=== PATIENT | male | born 1995 | race African-American/Black ===

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

== ENCOUNTER 2021-05-31 13:06 | Emergency (ER) | payer OTHER ==
[~2021-05-31] VITALS: Ht 165.1 cm; Wt 63.6 kg
[2021-05-31] MEDS ORDERED: HYDROCODONE/ACETAMINOPHEN 5-325 MG TABLET PO ONE (14:00)
[2021-05-31] MEDS ORDERED: KETOROLAC TROMETHAMINE 30 MG/ML VIAL IM ONE (14:00)
[2021-05-31 15:07] VITALS: BP 120/69
[2021-05-31] MEDS ORDERED: NAPR-1025 PO (15:24)
[2021-05-31] MEDS ORDERED: LIDOCAINE 5% TRANSDERMAL PATCH TD ONE (15:30)
== END 2021-05-31 15:48 | disposition home or self-care (01) ==
LOC: EMS 13:06
DX: S20.219A Contusion of unspecified front wall of thorax, initial encounter (principal); Z59.00 Homelessness unspecified; V19.9XXA Pedal cyclist (driver) (passenger) injured in unspecified traffic accident, initial encounter; Y93.55 Activity, bike riding; Y92.828 Other wilderness area as the place of occurrence of the external cause; Y99.8 Other external cause status
CPT/HCPCS: 71046; 93005; 96372; 99283; J1885; 99284

== ENCOUNTER 2021-06-05 03:37 | Emergency (ER) | payer OTHER ==
[~2021-06-05] VITALS: Ht 165.1 cm; Wt 63.6 kg
[~2021-06-05 03:37] MED LIST changes: +NAPR-1025 PO
[2021-06-05] MEDS ORDERED: ASPIRIN 325 MG TABLET PO ONE (04:00)
[2021-06-05] MEDS ORDERED: LORazepam 2 MG/ML VIAL IM ONE (04:00)
[2021-06-05 04:08] LABS: BASOPHILS % (AUTO) 1.1 % (0.0-2.0); EOSINOPHILS % (AUTO) 3.7 % (1.0-6.0); HEMATOCRIT 43.1 % (41-53); HEMOGLOBIN 14.9 g/dL (13.5-17.5); LYMPHOCYTES # (AUTO) 3.8 K/uL (1.0-4.8); LYMPHOCYTES % (AUTO) 32.6 % (22.0-44.0); MEAN CORPUSCULAR HEMOGLOBIN 29.2 pg (26.0-34.0); MEAN CORPUSCULAR HGB CONC 34.6 G/dL (31.0-37.0); MEAN CORPUSCULAR VOLUME 84 fL (80-100); MONOCYTES # (AUTO) 1.1 K/uL (0.1-1.0); MONOCYTES % (AUTO) 9.3 % (2.0-9.0); NEUTROPHILS # (AUTO) 6.3 K/uL (1.8-7.7); NEUTROPHILS % (AUTO) 53.3 % (40.0-70.0); PLATELET COUNT (AUTO) 318 K/uL (150-450); RED BLOOD CELL COUNT(AUTO) 5.12 MIL/uL (4.50-5.90); RED CELL DISTRIBUTION WIDTH 13.9 % (11.5-14.5)
[2021-06-05 04:17] LABS: ANION GAP 12 mmol/L (8-16); CALCIUM, TOTAL 8.9 mg/dL (8.8-10.5); CARBON DIOXIDE 27 mmol/L (22-29); CHLORIDE 101 mmol/L (98-107); CREATININE 1.07 mg/dL (0.60-1.30); GLOMERULAR FILTR. RATE CALC > 60 mL/min (>60); GLUCOSE,RANDOM 169 mg/dL (70-110); POTASSIUM 3.4 mmol/L (3.5-5.1); SODIUM SERUM 140 mmol/L (136-145); UREA NITROGEN, BLOOD 11 mg/dL (7-18)
[2021-06-05 04:23] LABS: ALANINE AMINOTRANSFERASE 44 U/L (12-78); ALBUMIN 3.9 g/dL (3.4-5.0); ALKALINE PHOSPHATASE 54 U/L (46-116); ASPARTATE AMINOTRANSFERASE 20 U/L (15-37); BILIRUBIN,TOTAL 0.8 mg/dL (0.1-1.0); TOTAL PROTEIN, SERUM 7.6 g/dL (6.4-8.2)
[2021-06-05 04:25] LABS: AMPHET/METH SCREEN,URINE POSITIVE (NEGATIVE); BARBITURATE SCREEN, URINE NEGATIVE (NEGATIVE); BENZODIAZEPINES SCREEN,URINE NEGATIVE (NEGATIVE); CANNABINOID SCREEN,URINE NEGATIVE (NEGATIVE); COCAINE SCREEN,URINE NEGATIVE (NEGATIVE); METHADONE SCREEN, URINE NEGATIVE (NEGATIVE); OPIATE SCREEN,URINE POSITIVE (NEGATIVE); PHENCYCLIDINE SCREEN,URINE NEGATIVE (NEGATIVE)
[2021-06-05] MEDS ORDERED: LORA-1000 PO (04:39)
[2021-06-05] MEDS ORDERED: LORazepam 1 MG TABLET PO ONE (04:45)
[2021-06-05 04:47] VITALS: BP 134/75
== END 2021-06-05 04:53 | disposition home or self-care (01) ==
LOC: EMS 03:40
DX: R07.89 Other chest pain (principal); F15.10 Other stimulant abuse, uncomplicated; R20.0 Anesthesia of skin; Z59.00 Homelessness unspecified
CPT/HCPCS: 36415; 71045; 80053; 80307; 84484; 85025; 93005; 96372; 99285; J2060

== ENCOUNTER 2021-07-20 18:30 | Emergency (ER) | payer OTHER ==
[~2021-07-20] VITALS: Ht 167.6 cm; Wt 65.9 kg
[~2021-07-20 18:30] MED LIST changes: +LORA-1000 PO
[2021-07-20 18:41] VITALS: BP 151/75
== END 2021-07-20 22:00 | disposition left against medical advice (07) ==
LOC: EMS 18:35
DX: Z53.21 Procedure and treatment not carried out due to patient leaving prior to being seen by health care provider (principal)

== ENCOUNTER 2021-09-08 16:55 | Emergency (ER) | payer OTHER ==
[~2021-09-08] VITALS: Ht 177.8 cm; Wt 65.9 kg
[2021-09-08 18:42] VITALS: BP 145/88
== END 2021-09-08 19:48 | disposition left against medical advice (07) ==
LOC: EMS 16:57
DX: Z53.21 Procedure and treatment not carried out due to patient leaving prior to being seen by health care provider (principal)
CPT/HCPCS: 93005

== ENCOUNTER 2022-01-13 15:50 | Emergency (ER) | payer OTHER ==
[~2022-01-13] VITALS: Ht 167.6 cm; Wt 63.6 kg
[2022-01-13 16:01] VITALS: BP 124/65
[2022-01-13] MEDS ORDERED: LIDOCAINE 5% 36 GM OINTMENT TP ONE (16:45)
[2022-01-13] MEDS ORDERED: DOXY-354 PO (17:37)
[2022-01-13] MEDS ORDERED: IBUPROFEN 800 MG TABLET PO ONE (17:45)
== END 2022-01-13 18:02 | disposition home or self-care (01) ==
LOC: EMS 15:51
DX: L03.011 Cellulitis of right finger (principal); Z59.00 Homelessness unspecified
CPT/HCPCS: 10060; 99282; Z7502; Z7610

== ENCOUNTER 2022-04-18 22:35 | Emergency (ER) | payer OTHER ==
[~2022-04-18] VITALS: Ht 165.1 cm; Wt 72.7 kg
[~2022-04-18 22:35] MED LIST changes: +DOXY-354 PO; -LORA-1000 PO; -NAPR-1025 PO; -NOCURR
[2022-04-18 23:16] VITALS: BP 133/75
== END 2022-04-19 01:25 | disposition left against medical advice (07) ==
LOC: EMS 22:56
DX: L02.416 Cutaneous abscess of left lower limb (principal); Z53.21 Procedure and treatment not carried out due to patient leaving prior to being seen by health care provider
CPT/HCPCS: 99281; Z7502

== ENCOUNTER 2022-06-28 16:52 | Emergency (ER) | payer OTHER ==
[~2022-06-28] VITALS: Ht 167.6 cm; Wt 68.2 kg
[2022-06-28 17:40] VITALS: BP 132/78
[2022-06-28] MEDS ORDERED: DOXYCYCLINE HYCLATE 100 MG TABLET PO ONE (17:45)
[2022-06-28] MEDS ORDERED: CEPHALEXIN MONOHYDRATE 500 MG CAPSULE PO ONE (17:45)
[2022-06-28] MEDS ORDERED: CEPH-558 PO (17:46)
[2022-06-28] MEDS ORDERED: DOXY-354 PO (17:47)
[2022-06-28] MEDS ORDERED: IBUP-1492 PO (17:48)
[2022-06-28] MEDS ORDERED: PERTUSS(ACELL),DIPH,TET VAC/PF 0.5 ML SYRINGE IM. ONE (18:15)
[2022-06-28] MEDS: POVIDONE-IODINE 10% 15 ML SOLUTION UD TP ONE ×2 (18:17→18:52)
[2022-06-28] MEDS: LIDOCAINE 1% 10 ML VIAL PERC ONE ×2 (18:18→18:52)
== END 2022-06-28 18:53 | disposition home or self-care (01) ==
LOC: EMS 16:53
DX: L03.011 Cellulitis of right finger (principal); F12.90 Cannabis use, unspecified, uncomplicated; F15.90 Other stimulant use, unspecified, uncomplicated; Z59.00 Homelessness unspecified
CPT/HCPCS: 99283; 90715; 90471; J3490; 99285